=== PATIENT | female | born 1975 | race American Indian/Alaskan Native ===

== ENCOUNTER 2017-12-03 18:14 | Emergency (ER) | payer MEDICAID, OTHER ==
[2017-12-03] MEDS ORDERED: BENADRYL PO ONE (19:30)
[2017-12-03] MEDS ORDERED: MOTRIN PO ONE (19:30)
--- NOTE | 2017-12-03 19:36 | Emergency Department Report ---
- General Chief complaint: Medical Clearance Stated complaint: SPIDER BITE/PAIN Time Seen by Provider: 12/03/17 19:29 Source: patient Mode of arrival: Ambulatory Limitations: No Limitations - History of Present Illness Initial comments: 42-year-old -Mal[place] female comes in complaining of a spider bite. States that he was at work on Tuesday and it bit her on her back and now she has AND feels numbness and burning to her back and left flank. Patient reports that she is needs hydrocortisone cream and alcohol. She states that the rash is spreading. Denies any fever or chills or nausea no vomiting. MD complaint: rash Severity scale (0 -10): 3 Quality: burning Consistency: constant Improves with: none Worsens with: none Context: witnessed insect bite - Related Data Previous Rx's Medication Instructions Recorded Last Taken Type Amoxicillin [Trimox CAP] 500 mg PO Q8H #30 capsule 07/31/15 Unknown Rx Fluticasone [Flonase] 2 spray NS QDAY #1 bottle 07/31/15 Unknown Rx Loratadine [Claritin] 10 mg PO DAILY #30 tablet 07/31/15 Unknown Rx Prednisone [predniSONE 10 mg 10 mg PO .TAPER #1 tab.ds.pk 07/31/15 Unknown Rx (6-Day Pack, 21 Tabs)] Promethazine /Codeine 5 ml PO Q6H PRN #120 ml 07/31/15 Unknown Rx [Phenergan/Codeine 6.25-10 mg/5 ml] Doxycycline [Vibramycin CAP] 100 mg PO Q12HR #20 capsule 12/03/17 Unknown Rx Ibuprofen [Motrin 600 MG tab] 600 mg PO Q8H PRN #30 tablet 12/03/17 Unknown Rx Allergies Allergy/AdvReac Type Severity Reaction Status Date / Time No Known Allergies Allergy Verified 12/03/17 18:26 Abscess Boil HPI - HPI Chief Complaint: Medical Clearance Stated Complaint: SPIDER BITE/PAIN Time Seen by Provider: 12/03/17 19:29 Home Medications: Previous Rx's Medication Instructions Recorded Last Taken Type Amoxicillin [Trimox CAP] 500 mg PO Q8H #30 capsule 07/31/15 Unknown Rx Fluticasone [Flonase] 2 spray NS QDAY #1 bottle 07/31/15 Unknown Rx Loratadine [Claritin] 10 mg PO DAILY #30 tablet 07/31/15 Unknown Rx Prednisone [predniSONE 10 mg 10 mg PO .TAPER #1 tab.ds.pk 07/31/15 Unknown Rx (6-Day Pack, 21 Tabs)] Promethazine /Codeine 5 ml PO Q6H PRN #120 ml 07/31/15 Unknown Rx [Phenergan/Codeine 6.25-10 mg/5 ml] Doxycycline [Vibramycin CAP] 100 mg PO Q12HR #20 capsule 12/03/17 Unknown Rx Ibuprofen [Motrin 600 MG tab] 600 mg PO Q8H PRN #30 tablet 12/03/17 Unknown Rx Allergies/Adverse Reactions: Allergies Allergy/AdvReac Type Severity Reaction Status Date / Time No Known Allergies Allergy Verified 12/03/17 18:26 ED Review of Systems ROS: Stated complaint: SPIDER BITE/PAIN Other details as noted in HPI Constitutional: denies: chills, fever Eyes: denies: eye pain, eye discharge, vision change ENT: denies: ear pain, throat pain Respiratory: denies: cough, shortness of breath, wheezing Cardiovascular: denies: chest pain, palpitations ED Past Medical Hx - Past Medical History Previous Medical History?: No - Surgical History Hx Cholecystectomy: Yes (2000) - Social History Smoking Status: Never Smoker Substance Use Type: None - Medications Home Medications: Home Medications Medication Instructions Recorded Confirmed Last Taken Type Amoxicillin [Trimox CAP] 500 mg PO Q8H #30 capsule 07/31/15 Unknown Rx Fluticasone [Flonase] 2 spray NS QDAY #1 bottle 07/31/15 Unknown Rx Loratadine [Claritin] 10 mg PO DAILY #30 tablet 07/31/15 Unknown Rx Prednisone [predniSONE 10 mg 10 mg PO .TAPER #1 tab.ds.pk 07/31/15 Unknown Rx (6-Day Pack, 21 Tabs)] Promethazine /Codeine 5 ml PO Q6H PRN #120 ml 07/31/15 Unknown Rx [Phenergan/Codeine 6.25-10 mg/5 ml] Doxycycline [Vibramycin CAP] 100 mg PO Q12HR #20 capsule 12/03/17 Unknown Rx Ibuprofen [Motrin 600 MG tab] 600 mg PO Q8H PRN #30 tablet 12/03/17 Unknown Rx ED Physical Exam - General Limitations: No Limitations General appearance: alert, in no apparent distress - Head Head exam: Present: atraumatic, normocephalic - Eye Eye exam: Present: EOMI - Neck Neck exam: Present: normal inspection - Respiratory Respiratory exam: Present: normal lung sounds bilaterally. Absent: respiratory distress - Cardiovascular Cardiovascular Exam: Present: regular rate, normal rhythm. Absent: systolic murmur, diastolic murmur, rubs, gallop - Extremities Exam Extremities exam: Present: normal inspection, full ROM - Neurological Exam Neurological exam: Present: alert, oriented X3 - Psychiatric Psychiatric exam: Present: normal affect, normal mood - Skin Skin exam: Present: warm, rash - Expanded Skin Exam Expanded Type of lesion: Present: rash Distribution of rash: back Description of rash: Present: tenderness, erythematous, vesicular ED Course Vital Signs 12/03/17 18:26 Temperature 99 F Pulse Rate 98 H Respiratory 16 Rate Blood Pressure 124/74 O2 Sat by Pulse 99 Oximetry ED Medical Decision Making - Medical Decision Making Patient has been evaluated by this provider in fast track. Patient is given ibuprofen and Benadryl for pain management. We'll discharge patient on doxycycline and ibuprofen for pain management. Discussed with patient if symptoms persist or gets worse to follow-up with her primary care provider. Critical care attestation.: If time is entered above; I have spent that time in minutes in the direct care of this critically ill patient, excluding procedure time. ED Disposition Clinical Impression: Insect bite Qualifiers: Encounter type: initial encounter Qualified Code(s): W57.XXXA - Bitten or stung by nonvenomous insect and other nonvenomous arthropods, initial encounter Disposition: DC-01 TO HOME OR SELFCARE Is pt being admited?: No Does the pt Need Aspirin: No Condition: Stable Instructions: Insect Bite or Sting (ED) Additional Instructions: Please complete antibiotics as prescribed. Take pain medication as needed. If her symptoms persist or gets worse please follow up with her primary care provider. Prescriptions: Doxycycline [Vibramycin CAP] 100 mg PO Q12HR #20 capsule Ibuprofen [Motrin 600 MG tab] 600 mg PO Q8H PRN #30 tablet PRN Reason: Pain Referrals: PRIMARY CARE, [Primary Care Provider] - 3-5 Days Forms: Accompanied Note, Work/School Release Form(ED)
[2017-12-03 20:33] VITALS: BP 126/74
== END 2017-12-03 20:30 | disposition home or self-care (01) ==
LOC: ED 18:14
DX: S20.462A Insect bite (nonvenomous) of left back wall of thorax, initial encounter (principal); Z90.49 Acquired absence of other specified parts of digestive tract; W57.XXXA Bitten or stung by nonvenomous insect and other nonvenomous arthropods, initial encounter; Y93.89 Activity, other specified; Y92.89 Other specified places as the place of occurrence of the external cause; Y99.8 Other external cause status
CPT/HCPCS: 99282